=== PATIENT | female | born 1985 | race Caucasian/White ===

== ENCOUNTER 2016-06-05 02:12 | Emergency (ER) | payer MEDICAID ==
[~2016-06-05] VITALS: Ht 157.5 cm; Wt 54.4 kg
[~2016-06-05 02:12] MED LIST: birth control pill PO
[2016-06-05 02:20] VITALS: BP 116/83; PULSE 77; RESP 16; TEMP 97.5; O2SAT 100
[2016-06-05 03:08] LABS: BASOPHILS % (AUTO) 0.5 % (0.0-2.0); EOSINOPHILS # (AUTO) 0.5 K/uL (0.0-0.4); HEMATOCRIT 40.3 % (36-48); HEMOGLOBIN 13.4 g/dL (12.0-16.0); LYMPHOCYTES # (AUTO) 3.1 K/uL (1.0-5.5); LYMPHOCYTES % (AUTO) 33.3 % (20.5-51.5); MEAN CORPUSCULAR HEMOGLOBIN 31 pg (27-31); MEAN CORPUSCULAR HGB CONC 33 % (32-36); MEAN CORPUSCULAR VOLUME 95 fL (79.0-98.0); MONOCYTES # (AUTO) 0.6 K/uL (0.0-1.0); MONOCYTES % (AUTO) 6.9 % (1.7-9.3); NEUTROPHILS # (AUTO) 5.2 K/uL (1.8-7.7); NEUTROPHILS % (AUTO) 54.3 % (40.0-70.0); PLATELET COUNT (AUTO) 196 K/uL (130-430); RED BLOOD CELL COUNT(AUTO) 4.26 MIL/uL (4.2-6.2); RED CELL DISTRIBUTION WIDTH 12.8 % (9.0-15.0); WHITE BLOOD COUNT (AUTO) 9.4 K/uL (4.8-10.8)
[2016-06-05 03:13] LABS: ANION GAP 8 (5-15); CALCIUM 9.4 mg/dL (8.4-11.0); CHLORIDE 102 mmol/L (98-107); CREATININE 0.82 mg/dL (0.55-1.30); GLUCOSE 104 mg/dL (70-99); POTASSIUM 3.5 mmol/L (3.5-5.1); SODIUM SERUM 140 mmol/L (136-145); UREA NITROGEN, BLOOD 10 mg/dL (8-21)
[2016-06-05 03:17] LABS: GFR AFRICAN AMERICAN 105 mL/min (>90)
[2016-06-05 03:21] LABS: ALANINE AMINOTRANSFERASE 23 U/L (12-78); ALBUMIN 3.9 g/dL (3.4-4.8); ASPARTATE AMINOTRANSFERASE 22 U/L (10-37); TOTAL BILIRUBIN 0.4 mg/dL (0.0-1.0); TOTAL PROTEIN, SERUM 7.5 g/dL (6.4-8.3)
[2016-06-05 03:27] LABS: BARBITURATE, URINE NEGATIVE (NEG <=200); BENZODIAZEPINE, URINE NEGATIVE (NEG <=150); CANNABINOID, URINE NEGATIVE (NEG <=50); COCAINE, URINE POSITIVE (NEG <=150); METHAMPHETAMINES SCREEN,URINE NEGATIVE (NEG <=500); OPIATE, URINE NEGATIVE (NEG <=100); PHENCYCLIDINE SCREEN,URINE NEGATIVE (NEG <=25); UR TRICYCLIC ANTIDEPRESSANTS NEGATIVE (NEG <=300); URINE AMPHETAMINE NEGATIVE (NEG <=500); URINE METHADONE NEGATIVE (NEG <=200); URINE OXYCODONE SCREEN NEGATIVE (NEG <=100); URINE PROPOXYPHENE SCREEN NEGATIVE (NEG <=300)
[2016-06-05] MEDS ORDERED: LORazepam 2 MG/ML VIAL (FOR ER USE) IM ONE (04:00)
[2016-06-05] MEDS ORDERED: KETOROLAC TROMETHAMINE 60 MG/2 ML VIAL IM ONE ×2 (04:00→04:04)
[2016-06-05 04:44] VITALS: BP 120/86; PULSE 77; RESP 16; TEMP 97.5; O2SAT 100
== END 2016-06-05 04:44 | disposition home or self-care (01) ==
LOC: SED 02:12
DX: M94.0 Chondrocostal junction syndrome [Tietze] (principal); F41.9 Anxiety disorder, unspecified
CPT/HCPCS: 36415; 80053; 80307; 81025; 84484; 85025; 93005; 96372; 99285; J1885; J2060

== ENCOUNTER 2016-06-12 05:26 | Emergency (ER) | payer MEDICAID ==
[~2016-06-12] VITALS: Ht 160 cm; Wt 54.4 kg
[2016-06-12 05:28] VITALS: BP 124/81; PULSE 85; RESP 19; TEMP 98.3; O2SAT 99
[2016-06-12] MEDS ORDERED: LORazepam 2 MG/ML VIAL (FOR ER USE) IVP ONE (06:15)
[2016-06-12] MEDS ORDERED: NACL 0.9% 1,000 ML IV ONE (06:15)
[2016-06-12] MEDS ORDERED: KETOROLAC TROMETHAMINE 30 MG VIAL IVP ONE (06:15)
[2016-06-12 07:12] LABS: BASOPHILS % (AUTO) 0.7 % (0.0-2.0); EOSINOPHILS # (AUTO) 0.5 K/uL (0.0-0.4); EOSINOPHILS % (AUTO) 7.1 % (0.0-4.0); HEMATOCRIT 40.4 % (36-48); HEMOGLOBIN 13.7 g/dL (12.0-16.0); LYMPHOCYTES # (AUTO) 2.6 K/uL (1.0-5.5); LYMPHOCYTES % (AUTO) 38.3 % (20.5-51.5); MEAN CORPUSCULAR HEMOGLOBIN 32 pg (27-31); MEAN CORPUSCULAR HGB CONC 34 % (32-36); MEAN CORPUSCULAR VOLUME 94 fL (79.0-98.0); MONOCYTES # (AUTO) 0.7 K/uL (0.0-1.0); MONOCYTES % (AUTO) 9.9 % (1.7-9.3); PLATELET COUNT (AUTO) 201 K/uL (130-430); RED BLOOD CELL COUNT(AUTO) 4.31 MIL/uL (4.2-6.2); RED CELL DISTRIBUTION WIDTH 12.7 % (9.0-15.0); WHITE BLOOD COUNT (AUTO) 6.8 K/uL (4.8-10.8)
[2016-06-12 07:37] LABS: ALBUMIN 4.2 g/dL (3.4-4.8); CALCIUM 9.3 mg/dL (8.4-11.0); CREATININE 0.63 mg/dL (0.55-1.30); POTASSIUM 3.4 mmol/L (3.5-5.1); TOTAL BILIRUBIN 0.4 mg/dL (0.0-1.0); TOTAL PROTEIN, SERUM 8.1 g/dL (6.4-8.3)
[2016-06-12 08:34] VITALS: BP 118/80; PULSE 82; RESP 20; TEMP 98.2; O2SAT 99
== END 2016-06-12 08:34 | disposition home or self-care (01) ==
LOC: SED 05:26
DX: M94.0 Chondrocostal junction syndrome [Tietze] (principal); G89.29 Other chronic pain; F41.9 Anxiety disorder, unspecified
CPT/HCPCS: 36415; 71010; 80053; 81025; 85025; 93005; 96374; 96375; 99285; J1885; J2060; J7030

== ENCOUNTER 2017-11-20 18:37 | Emergency (ER) | payer MEDICAID ==
[~2017-11-20] VITALS: Ht 157.5 cm; Wt 57.6 kg
[2017-11-20 18:37] VITALS: BP_SYST 101
== END 2017-11-20 19:00 ==
LOC: SED 18:37
DX: Z39.2 Encounter for routine postpartum follow-up (principal); F41.9 Anxiety disorder, unspecified
CPT/HCPCS: 99283